=== PATIENT | male | born 1995 | race Caucasian/White ===

== ENCOUNTER 2019-04-26 21:25 | Emergency (ER) | payer SELFPAY ==
[2019-04-26 21:30] VITALS: BP 142/72; PULSE 87; RESP 18; TEMP 36.9; O2SAT 97; BMI 36.0
[2019-04-26 22:01] LABS: Add Urine Microscopic? NO
[2019-04-26 22:14] LABS: Urine Appearance Clear (CLEAR); Urine Color Yellow (Yellow)
[2019-04-26 22:15] LABS: Specific Gravity, Urine 1.015 (1.005-1.030); pH Urine 5 (5-7)
[2019-04-26 22:17] LABS: Bilirubin Urine Neg (NEGATIVE); Blood Urine Neg (Negative); Glucose Urine UA Norm (Normal); Ketones Urine Negative (Negative); Nitrate Urine Negative (Negative); Protein Urine Neg (Negative)
[2019-04-26 22:18] LABS: Leukocyte Esterase Urine Negative (Negative); Urobilinogen Urine Norm (Negative)
--- NOTE | 2019-04-26 23:51 | ED_ITS ---
HPI - Back Pain/Injury General: Chief Complaint: Back Pain/Injury Stated Complaint: low back pain Time Seen by Provider: 04/26/19 23:51 Source: patient Mode of arrival: ambulatory Limitations: no limitations History of Present Illness: HPI Narrative: pt with acute on chronic lower back pain; no known injury/trauma; no radiation; denies numbness, tingling, weakness to LEs; denies saddle anesthesia or bowel/bladder dysfunction MD elicited complaint: back pain Pertinent past history: prior back pain Onset (ago): hour(s) Timing: constant Similar Symptoms Previously: Yes Location: lumbar spine Radiation: none Exacerbating factors: movement Relieving factors: none Associated symptoms: Reports no associated symptoms; Deny abdominal pain, chills, difficulty walking, dysuria, fever(s), nausea, syncope, urinary urgency or vomiting Work related injury: No Review of Systems Const: Denies: fever or chills Card: Denies: chest pain, palpitations, irregular heart rhythm, lightheadedness, syncope or shortness of breath on exertion Resp: Denies: shortness of breath, productive cough or pain on inspiration GI: Denies: abdominal pain, nausea, vomiting, heartburn/indigestion or diarrhea : Denies: flank pain, difficulty urinating, painful urination, urinary frequency, urinary urgency or urinary hesitancy Musc: Reports: back pain; Denies: neck pain or joint pain Skin/Breast: Denies: rash Neuro: Denies: headache, numbness in extremities, weakness in extremities, difficulty walking, frequent falls or dizziness PFSH ED PFSH: Statuses (acute, chronic, etc) shown below reflect problem list status as previously entered and may not be historically accurate Social History Smoking and tobacco status: current every day smoker Physical Exam Const: COMMON NORMALS: no apparent distress, oriented x3 and alert GENERAL APPEARANCE: cooperative HENMT: COMMON NORMALS: normocephalic and head/scalp atraumatic HEAD & SCALP: normocephalic and atraumatic Neck/C-Spine: COMMON NORMALS: full ROM, no lymphadenopathy and supple Resp: COMMON NORMALS: normal respiratory effort, no retractions, no use of accessory muscles and clear to auscultation bilaterally AUSCULTATION: clear to auscultation bilaterally Cardio: COMMON NORMALS: regular rate and regular rhythm RATE: regular rate RHYTHM: regular rhythm : COMMON NORMALS: Yes no CVA tenderness BLADDER/KIDNEY EXAM: Yes no CVA tenderness Back/Pelvis: COMMON NORMALS: no CVA tenderness THORACIC SPINE/UPPER BACK: Yes normal to inspection and Yes thoracic ROM normal LUMBAR SPINE/LOWER BACK: Yes lumbar spinal tenderness, Yes paraspinal muscle tenderness and Yes paraspinal muscle spasm (R mid lumbar) Extremity: COMMON NORMALS: normal to inspection GENERAL: Yes normal exam except as noted Neuro: COMMON NORMALS: oriented x3 SENSORIUM/ORIENTATION: Yes alert Course Vital Signs: Vital signs: Vital Signs Temperature 97.4 F L 04/27/19 01:47 Pulse Rate 81 04/27/19 01:47 Respiratory Rate 14 04/27/19 01:47 Blood Pressure 141/76 04/27/19 01:47 Pulse Oximetry 97 04/27/19 01:47 MDM - Back Pain/Injury Lab Data: Labs: Lab Results 04/26/19 Range/Units 21:35 Urine Color Yellow (Yellow) Urine Appearance Clear (CLEAR) Urine pH 5 (5-7) Ur Specific Gravit y 1.015 (1.005-1.030) Urine Protein Neg (Negative) Urine Glucose (UA) Norm (Normal) Urine Ketones Negative (Negative) Urine Occult Blood Neg (Negative) Urine Nitrate Negative (Negative) Urine Bilirubin Neg (NEGATIVE) Urine Urobilinogen Norm (Negative) mg/dL Ur Leukocyte Rivka ase Negative (Negative) Discharge Plan Discharge Patient Disposition: Home, Self-Care Clinical Impression: Strain of lumbar region Qualifiers: Encounter type: initial encounter Qualified Code(s): S39.012A - Strain of muscle, fascia and tendon of lower back, initial encounter Condition: Stable Prescriptions: New prednisone 10 mg tablet 60 mg PO DAILY 5 Days Qty: 30 RF: 0 cyclobenzaprine 10 mg tablet 10 mg PO TID Qty: 14 RF: 0 Tylenol-Codeine #3 300-30 mg tablet 1 tab PO Q6H PRN (Reason: pain) Qty: 10 RF: 0 Discharge Orders: Discharge Order (Routine); Ordered 04/27/19 Ordered By: Cristina Jimenez Referrals: Carolyn Vela MD [Family Provider] - Discharge Activity: Increase activity as tolerated Patient Instructions: Low Back Strain (ED), Back Pain (ED) Discharge Date/Time: 04/27/19 01:40 Coding Level of Care Code ED Brim Stretching Machine Operator for Chg Fwd
[2019-04-27 00:50] VITALS: RESP 16
[2019-04-27] MEDS: dexamethasone 10 mg/mL INJ 8 MG IM (00:50)
[2019-04-27] MEDS: morphine 4 mg/mL SDV 1 mL IM (00:50)
[2019-04-27 01:47] VITALS: BP 141/76; PULSE 81; RESP 14; TEMP 36.3; O2SAT 97
== END 2019-04-27 01:40 | disposition home or self-care (01) ==
LOC: ER 04-27 00:44
PROVIDERS: Emergency Medicine; Emergency Provider Physician Assistant; Family Provider Pediatrics
DX: S39.012A Strain of muscle, fascia and tendon of lower back, initial encounter (principal); X58.XXXA Exposure to other specified factors, initial encounter; F17.210 Nicotine dependence, cigarettes, uncomplicated
CPT/HCPCS: 81003; 96372; 99281; J1100; J2270

== ENCOUNTER → 2020-01-15 11:10 | Outpatient (BNVA) | payer SELFPAY | PROVIDERS: Family Provider Pediatrics; Visit Provider Nurse Practitioner Family | DX: Z20.828 Contact with and (suspected) exposure to other viral communicable diseases (principal) | CPT/HCPCS: 87635 ==

== ENCOUNTER 2020-05-18 10:38 | Outpatient (CLI) | payer BC, SELFPAY ==
--- NOTE | 2020-05-18 10:51 | XR_ITS ---
WS: [id number] Exam: XR thoracic spine 3V* [id number] Date/Time of Exam: 05/18/2020 10:57 AM Reason For Exam: MYALGIA/MYOSITIS/LOW BACK PAIN Comparison 09/30/2009. No acute fracture or dislocation. Slight levoscoliosis. Paraspinal soft tissue structures are unremar kable. XR/XR thoracic spine 3V* [id number] IMPRESSION: 1. No fracture or malalignment. Slight scoliosis.
--- NOTE | 2020-05-18 10:51 | XR_ITS ---
WS: [id number] Exam: XR lumbar spine 2-3V* [id number] Date/Time of Exam: 05/18/2020 10:57 AM Reason For Exam: MYALGIA/MYOSITIS/LOW BACK PAIN Findings: In the AP projection, the lumbar spine is straight. The sacroiliac joints are open. The facet struc tures are bilaterally symmetrical. In the lateral projection, the lumbar curve is well maintained. The intervertebral disc spaces are intact. No fractures or anomalies of the lumbar spine are noted. XR/XR lumbar spine 2-3V* [id number] IMPRESSION: Negative lumbar spine.
== END 2020-05-18 10:39 | disposition home or self-care (01) ==
PROVIDERS: Visit Provider Nurse Practitioner Family
DX: M60.9 Myositis, unspecified (principal); M54.5 Low back pain
CPT/HCPCS: 72072; 72100

== ENCOUNTER → 2020-11-27 12:16 | Outpatient (BNVA) | payer BC, SELFPAY | PROVIDERS: Visit Provider Nurse Practitioner Family | DX: Z20.828 Contact with and (suspected) exposure to other viral communicable diseases (principal); Z20.822 Contact with and (suspected) exposure to COVID-19 | CPT/HCPCS: 87635 ==

== ENCOUNTER → 2020-11-29 18:22 | Outpatient (BNVA) | payer BC, SELFPAY | PROVIDERS: Visit Provider Registered Nurse Neonatal Intensive Care | DX: Z20.822 Contact with and (suspected) exposure to COVID-19 (principal); Z11.59 Encounter for screening for other viral diseases | CPT/HCPCS: 87635 ==

== ENCOUNTER → 2021-02-12 13:10 | Outpatient (BNVA) | payer BC, SELFPAY | PROVIDERS: Visit Provider Emergency Medicine | DX: Z20.828 Contact with and (suspected) exposure to other viral communicable diseases (principal); Z20.822 Contact with and (suspected) exposure to COVID-19 | CPT/HCPCS: 87635 ==

== ENCOUNTER → 2021-03-08 09:25 | Outpatient (BNVA) | payer BC, SELFPAY | PROVIDERS: Visit Provider Internal Medicine | DX: M54.50 Low back pain, unspecified (principal); M25.50 Pain in unspecified joint; G47.30 Sleep apnea, unspecified; Z11.59 Encounter for screening for other viral diseases; Z87.891 Personal history of nicotine dependence | CPT/HCPCS: 99204 ==

== ENCOUNTER 2021-03-08 11:23 | Outpatient (CLI) | payer BC, SELFPAY ==
--- NOTE | 2021-03-08 11:30 | XR_ITS ---
WS: [id number] Exam: XR sacroiliac jts m 3V [id number] Date/Time of Exam: 03/08/2021 12:14 PM Reason For Exam: M54.50 - Low back pain, unspecified No sign of fracture or dislocation. The right and left sacroiliac joints are open. No sign of bone de struction. XR/XR sacroiliac jts m 3V [id number] IMPRESSION: 1. Normal bilateral SI joints.
--- NOTE | 2021-03-08 11:30 | XR_ITS ---
WS: [id number] Exam: XR hand RT 2V [id number] Date/Time of Exam: 03/08/2021 12:14 PM Reason For Exam: M54.50 - Low back pain, unspecified Findings: No fractures, soft tissue swelling, or unusual calcifications are noted. The hand shows normal bony alignment. There is no irregularity of the bony architecture. XR/XR hand RT 2V [id number] IMPRESSION: Normal right hand.
--- NOTE | 2021-03-08 11:30 | XR_ITS ---
WS: [id number] Exam: XR hand LT 2V [id number] Date/Time of Exam: 03/08/2021 12:14 PM Reason For Exam: M54.50 - Low back pain, unspecified Findings: No fractures, soft tissue swelling, or unusual calcifications are noted. The hand shows normal bony alignment. There is no irregularity of the bony architecture. XR/XR hand LT 2V [id number] IMPRESSION: Normal left hand.
[2021-03-08 12:49] LABS: Basophils % 0.3 %; Eosinophils # 0.2 10^3/uL (0.0-0.8); Eosinophils % 2.6 %; Hematocrit 41.9 % (42.0-52.0); Lymphocytes # 1.7 10^3/uL (0.8-4.8); Lymphocytes % 26.7 %; Mean Corpuscular HGB Conc 33.4 g/dL (30.0-36.0); Mean Corpuscular Hemoglobin 27.6 pg (28.0-34.0); Mean Corpuscular Volume 82.6 fl (80-94); Mean Platelet Volume 9.1 fL (7.4-10.4); Monocytes # 0.4 10^3/uL (0.2-0.9); Monocytes % 6.5 %; Neutrophils # 4.08 10^3/uL (1.8-7.7); Neutrophils % 63.6 %; Nucleated Red Blood Cells % 0 %; Platelet Count 268 10^3/cmm (130-400); Red Blood Count 5.07 10^6/uL (4.1-5.3); White Blood Count 6.4 10^3/uL (4.0-10.0)
[2021-03-08 13:32] LABS: Alanine Aminotransferase 20 U/L (0-41); Albumin Level 4.3 g/dL (3.5-5.2); Alkaline Phosphatase 72 IU/L (40-130); Anion Gap 18.1 (5-19); Aspartate Amino Transferase 13 U/L (0-40); Blood Urea Nitrogen 12 mg/dL (6-20); C Reactive Protein 11.3 mg/L (0.0-4.9); Calcium 8.9 mg/dL (8.5-10.5); Carbon Dioxide 22 mmol/L (22-29); Chloride 102 mmol/L (98-107); Creatine Phosphokinase 81 U/L (39-308); Globulin 2.9 g/dL (1.3-4.6); Glomerular Filtration Rate 136.3 mL/min (90-130); Glucose 79 mg/dL (65-115); Osmolality Calculated 285 mOsm/kg (285-295); Potassium 4.1 mmol/L (3.5-5.1); Sodium 138 mmol/L (136-145); Thyroid Stimulating Hormone 2.16 uIU/mL (0.27-4.20); Total Bilirubin 0.5 mg/dL (0.15-1.2); Total Protein 7.2 g/dL (6.6-8.7); Uric Acid 6.2 mg/dL (3.4-7.0)
[2021-03-08 13:39] LABS: Hepatitis B Core AB, Total Non-Reactive (Nonreactive); Hepatitis B Surface Antigen Non-Reactive (Nonreactive); Hepatitis C Virus Antibody Reactive (Nonreactive)
[2021-03-08 13:58] LABS: Ferritin 119 ng/mL (30-400); Iron 44 ug/dL (59-158)
[2021-03-09 13:32] LABS: Cyclic Citrullinated Peptide <16 UNITS
[2021-03-09 15:13] LABS: COMPLEMENT COMPONENT C3C 187 mg/dL (82-185); COMPLEMENT COMPONENT C4C 24 mg/dL (15-53)
[2021-03-09 20:12] LABS: Erythrocyte Sedimentation Rate 9 mm/hr (0-10)
[2021-03-10 08:48] LABS: HLA-B27 POSITIVE (NEGATIVE)
[2021-03-10 14:33] LABS: COMPLEMENT, TOTAL (CH50) >60 U/mL (31-60)
[2021-03-10 15:26] LABS: CENTROMERE B ANTIBODY <1.0 NEG AI (<1.0 NEG); JO-1 ANTIBODY <1.0 NEG AI (<1.0 NEG); RNP ANTIBODY <1.0 NEG AI (<1.0 NEG); SCL-70 ANTIBODY <1.0 NEG AI (<1.0 NEG); SJOGREN'S ANTIBODY (SS-A) <1.0 NEG AI (<1.0 NEG); SM ANTIBODY <1.0 NEG AI (<1.0 NEG); SS-B <1.0 NEG AI (<1.0 NEG)
[2021-03-10 15:56] LABS: THYROID PEROXIDASE ANTIBODIES <1 IU/mL (<9)
[2021-03-10 17:13] LABS: ANA SCREEN, IFA NEGATIVE (NEGATIVE)
[2021-03-13 14:53] LABS: DNA AB (DS) CRITHIDIA,IFA NEGATIVE (NEGATIVE)
== END 2021-03-08 11:24 | disposition home or self-care (01) ==
PROVIDERS: Visit Provider Internal Medicine
DX: G47.30 Sleep apnea, unspecified (principal); M25.50 Pain in unspecified joint; M54.50 Low back pain, unspecified; M45.0 Ankylosing spondylitis of multiple sites in spine; Z11.59 Encounter for screening for other viral diseases
CPT/HCPCS: 72202; 73120; 80053; 82550; 82728; 83540; 84443; 84550; 85025; 85651; 86140; 86160; 86162; 86200; 86235; 86255; 86376; 86431; 86704; 86803; 86812; 87340

== ENCOUNTER → 2021-03-23 13:09 | Outpatient (BNVA) | payer BC, SELFPAY | PROVIDERS: Visit Provider Internal Medicine | DX: M54.50 Low back pain, unspecified (principal); M54.2 Cervicalgia; G89.29 Other chronic pain; M25.50 Pain in unspecified joint; G47.30 Sleep apnea, unspecified; R76.8 Other specified abnormal immunological findings in serum; Z79.899 Other long term (current) drug therapy; E61.1 Iron deficiency; Z15.89 Genetic susceptibility to other disease | CPT/HCPCS: 36415; 82306; 82607; 82784; 83516; 87522; 99214 ==

== ENCOUNTER 2021-06-08 10:04 | Outpatient (CLI) | payer BC, SELFPAY ==
[2021-06-08 10:29] LABS: Basophils % 0.3 %; Eosinophils # 0.2 10^3/uL (0.0-0.8); Eosinophils % 2.5 %; Hematocrit 40.4 % (42.0-52.0); Hemoglobin 13.4 g/dL (11.7-16.6); Lymphocytes # 1.7 10^3/uL (0.8-4.8); Lymphocytes % 22.5 %; Mean Corpuscular HGB Conc 33.2 g/dL (30.0-36.0); Mean Corpuscular Hemoglobin 27.7 pg (28.0-34.0); Mean Corpuscular Volume 83.5 fl (80-94); Mean Platelet Volume 9.2 fL (7.4-10.4); Monocytes # 0.6 10^3/uL (0.2-0.9); Monocytes % 7.4 %; Neutrophils # 4.99 10^3/uL (1.8-7.7); Neutrophils % 66.9 %; Nucleated Red Blood Cells % 0 %; Platelet Count 255 10^3/cmm (130-400); Red Blood Count 4.84 10^6/uL (4.1-5.3); Red Cell Distribution Width 13.3 % (12.1-15.1); White Blood Count 7.5 10^3/uL (4.0-10.0)
[2021-06-08 10:56] LABS: Erythrocyte Sedimentation Rate 6 mm/hr (0-10)
[2021-06-08 10:59] LABS: Alanine Aminotransferase 21 U/L (0-41); Albumin Level 4.3 g/dL (3.5-5.2); Alkaline Phosphatase 77 IU/L (40-130); Anion Gap 12.3 (5-19); Aspartate Amino Transferase 14 U/L (0-40); Blood Urea Nitrogen 14 mg/dL (6-20); C Reactive Protein 12.6 mg/L (0.0-4.9); Calcium 9.5 mg/dL (8.5-10.5); Carbon Dioxide 25 mmol/L (22-29); Chloride 104 mmol/L (98-107); Globulin 2.8 g/dL (1.3-4.6); Glomerular Filtration Rate 162.9 mL/min (90-130); Glucose 88 mg/dL (65-115); Osmolality Calculated 284 mOsm/kg (285-295); Potassium 4.3 mmol/L (3.5-5.1); Sodium 137 mmol/L (136-145); Total Bilirubin 0.5 mg/dL (0.15-1.2); Total Protein 7.1 g/dL (6.6-8.7)
== END 2021-06-08 10:05 | disposition home or self-care (01) ==
LOC: LAB 10:08
PROVIDERS: Visit Provider Internal Medicine
DX: R76.8 Other specified abnormal immunological findings in serum (principal); Z15.89 Genetic susceptibility to other disease; Z79.899 Other long term (current) drug therapy
CPT/HCPCS: 36415; 80053; 85025; 85651; 86140

== ENCOUNTER 2021-07-22 12:50 | Outpatient (CLI) | payer BC, SELFPAY ==
[2021-07-22 13:47] LABS: Basophils % 0.5 %; Eosinophils # 0.3 10^3/uL (0.0-0.8); Eosinophils % 4.4 %; Hematocrit 41.4 % (42.0-52.0); Hemoglobin 13.5 g/dL (11.7-16.6); Lymphocytes # 1.9 10^3/uL (0.8-4.8); Lymphocytes % 32.6 %; Mean Corpuscular HGB Conc 32.6 g/dL (30.0-36.0); Mean Corpuscular Hemoglobin 27.3 pg (28.0-34.0); Mean Corpuscular Volume 83.8 fl (80-94); Mean Platelet Volume 9.6 fL (7.4-10.4); Monocytes # 0.4 10^3/uL (0.2-0.9); Monocytes % 7.6 %; Neutrophils % 54.7 %; Nucleated Red Blood Cells % 0 %; Platelet Count 295 10^3/cmm (130-400); Red Blood Count 4.94 10^6/uL (4.1-5.3); Red Cell Distribution Width 13.2 % (12.1-15.1); White Blood Count 5.7 10^3/uL (4.0-10.0)
[2021-07-22 13:53] LABS: Alanine Aminotransferase 19 U/L (0-41); Albumin Level 4.5 g/dL (3.5-5.2); Alkaline Phosphatase 69 IU/L (40-130); Anion Gap 11.8 (5-19); Aspartate Amino Transferase 17 U/L (0-40); Blood Urea Nitrogen 12 mg/dL (6-20); Calcium 9.8 mg/dL (8.5-10.5); Carbon Dioxide 27 mmol/L (22-29); Chloride 102 mmol/L (98-107); Globulin 2.1 g/dL (1.3-4.6); Glomerular Filtration Rate 90.3 mL/min (90-130); Glucose 116 mg/dL (65-115); Osmolality Calculated 285 mOsm/kg (285-295); Potassium 3.8 mmol/L (3.5-5.1); Sodium 137 mmol/L (136-145); Total Bilirubin 0.5 mg/dL (0.15-1.2); Total Protein 6.6 g/dL (6.6-8.7)
== END 2021-07-22 12:51 | disposition home or self-care (01) ==
LOC: LAB 12:52
PROVIDERS: Visit Provider Internal Medicine
DX: M25.50 Pain in unspecified joint (principal); Z15.89 Genetic susceptibility to other disease; Z79.899 Other long term (current) drug therapy
CPT/HCPCS: 36415; 80053; 85025

== ENCOUNTER 2021-08-25 15:00 | Outpatient (CLI) | payer BC, SELFPAY ==
[2021-08-25 16:01] LABS: Basophils % 0.3 %; Eosinophils # 0.1 10^3/uL (0.0-0.8); Eosinophils % 1.7 %; Hematocrit 39.8 % (42.0-52.0); Lymphocytes # 1.9 10^3/uL (0.8-4.8); Lymphocytes % 27.1 %; Mean Corpuscular HGB Conc 32.7 g/dL (30.0-36.0); Mean Corpuscular Hemoglobin 27.3 pg (28.0-34.0); Mean Corpuscular Volume 83.6 fl (80-94); Mean Platelet Volume 9.5 fL (7.4-10.4); Monocytes # 0.5 10^3/uL (0.2-0.9); Monocytes % 6.9 %; Neutrophils # 4.36 10^3/uL (1.8-7.7); Neutrophils % 63.6 %; Nucleated Red Blood Cells % 0 %; Platelet Count 277 10^3/cmm (130-400); Red Blood Count 4.76 10^6/uL (4.1-5.3); Red Cell Distribution Width 13.3 % (12.1-15.1); White Blood Count 6.9 10^3/uL (4.0-10.0)
[2021-08-25 16:19] LABS: Erythrocyte Sedimentation Rate 8 mm/hr (0-10)
[2021-08-25 16:33] LABS: Alanine Aminotransferase 15 U/L (0-41); Albumin Level 4.4 g/dL (3.5-5.2); Alkaline Phosphatase 71 IU/L (40-130); Anion Gap 14.9 (5-19); Aspartate Amino Transferase 21 U/L (0-40); Blood Urea Nitrogen 12 mg/dL (6-20); C Reactive Protein 15.1 mg/L (0.0-4.9); Calcium 9.8 mg/dL (8.5-10.5); Carbon Dioxide 26 mmol/L (22-29); Chloride 102 mmol/L (98-107); Glomerular Filtration Rate 116.9 mL/min (90-130); Glucose 83 mg/dL (65-115); Osmolality Calculated 287 mOsm/kg (285-295); Potassium 3.9 mmol/L (3.5-5.1); Sodium 139 mmol/L (136-145); Total Bilirubin 0.7 mg/dL (0.15-1.2); Total Protein 7.4 g/dL (6.6-8.7)
== END 2021-08-25 15:01 | disposition home or self-care (01) ==
PROVIDERS: Visit Provider Internal Medicine
DX: M25.50 Pain in unspecified joint (principal); Z15.89 Genetic susceptibility to other disease; Z79.899 Other long term (current) drug therapy
CPT/HCPCS: 36415; 80053; 85025; 85651; 86140

== ENCOUNTER → 2021-08-31 09:03 | Outpatient (BNVA) | payer BC, SELFPAY | PROVIDERS: Visit Provider Internal Medicine | DX: M25.569 Pain in unspecified knee (principal) | CPT/HCPCS: 73562 ==

== ENCOUNTER 2021-12-08 19:51 | Emergency (ER) | payer BC, SELFPAY ==
[2021-12-08 19:53] VITALS: BP 122/69; PULSE 104; RESP 20; TEMP 36.7; O2SAT 99; BMI 36.1
--- NOTE | 2021-12-08 20:01 | XRR_ITS ---
PROCEDURE INFORMATION: Exam: XR Chest Exam date and time: 12/08/2021 8:03 PM Age: 26 years old Clinical indication: Fever TECHNIQUE: Imaging protocol: Radiologic exam of the chest. Views: 1 view. COMPARISON: CR XR thoracic spine 3V* [id number] 05/18/2020 11:03 AM FINDINGS: Lungs: Unremarkable. No consolidation. Pleural spaces: Unremarkable. No pleural effusion. No pneumothorax. Heart/Mediastinum: Unremarkable. No cardiomegaly. Bones/joints: Unremarkable. XR/XR chest 1V portable [id number] IMPRESSION: No acute findings.
--- NOTE | 2021-12-08 20:15 | ED_ITS ---
HPI - General Adult General: Chief complaint: Fever Stated complaint: Chest Pain/Fever/SOB Time Seen by Provider: 12/08/21 20:01 Source: patient Mode of arrival: ambulatory Limitations: no limitations History of Present Illness: Patient is a 26-year-old male who presents to ED today with complaint of a headache over the past few days, low-grade fever (99.0) starting yesterday, midthoracic back pain and burning chest pain beginning today. Patient states he does have a history of midthoracic back pain and states his pain today feels similar. He states the burning in his chest is not accompanied by a cough. He feels mildly short of breath. He does state his child is sick with fever and cough and not feeling well. Patient does not have any abdominal pain, nausea, vomiting or diarrhea. No rash. He has no neck pain or stiffness. Patient denies any leg pain, calf pain, redness, swelling. No risk factors for DVT/PE. No URI symptoms. Location: head, chest and back Severity: mild Associated symptoms: Reports chest pain, dyspnea and headache(s); Deny confusion, malaise, nausea, rash, palpitations, syncope or vomiting Review of Systems Const: Reports: fever(s) (subjective low grade); Denies: chills, body aches, fatigue or malaise Eyes: Denies: change in vision or blurry vision ENMT: Denies: throat pain, odynophagia, nasal discharge or nasal congestion Card: Reports: chest pain; Denies: palpitations, irregular heart rhythm, edema, swelling of feet/ankles, lightheadedness, syncope, pre-syncope, dyspnea on exertion, orthopnea, leg pain with exertion or acrocyanosis Resp: Reports: dyspnea and pain on inspiration; Denies: productive cough, non-productive cough, wheezing, hemoptysis or chest congestion GI: Denies: abdominal pain, nausea, vomiting or diarrhea : Denies: flank pain, dysuria or hematuria Musc: Reports: back pain; Denies: neck pain, extremity pain, extremity swelling, joint pain, joint swelling, joint redness or joint warmth Skin/Breast: Denies: rash Neuro: Reports: headache(s); Denies: numbness in extremities, weakness in extremities, sensory changes, dizziness or confusion PFS ED PFSH: Family History Family/Other Diabetes Hypertension Rheumatoid arthritis Heart attack Unknown Diabetes Rheumatoid arthritis Grandfather Hypertension Heart attack Grandmother Hypertension Denies family history of Lupus Hyperlipidemia Cancer Stroke Social History Smoking and tobacco status: former smoker Alcohol intake: never History of recent travel: No Physical Exam Const: COMMON NORMALS: no acute distress, patient oriented x3, no limitations, alert and well nourished GENERAL APPEARANCE: cooperative NUTRITIONAL APPEARANCE: overweight ORIENTATION/CONSCIOUSNESS: Yes awake, Yes oriented to place and Yes oriented to time HENMT: COMMON NORMALS: normocephalic and atraumatic HEAD & SCALP: normal to inspection, normocephalic and atraumatic Neck/C-Spine: COMMON NORMALS: full ROM, no lymphadenopathy and no meningeal signs Chest: COMMONS NORMALS: normal inspection of the chest OTHER: TTP anterior chest; palpation reproduces patient's pain Resp: COMMON NORMALS: normal respiratory effort and clear to auscultation bilaterally AUSCULTATION: clear to auscultation bilaterally Cardio: COMMON NORMALS: regular rate and regular rhythm RATE: regular rate RHYTHM: regular rhythm GI: COMMON NORMALS: Normal to inspection, nondistended, normoactive bowel sounds present, Soft to palpation and non-tender PALPATION: Yes Soft to palpation : COMMON NORMALS: Yes no CVA tenderness BLADDER/KIDNEY EXAM: Yes no CVA tenderness Back/Pelvis: COMMON NORMALS: no CVA tenderness, thoracic and lumbar spine normal to inspection and thoraco-lumbar ROM normal THORACIC SPINE/UPPER BACK: Yes normal to inspection, Yes thoracic ROM normal, Yes thoracic spinal tenderness (extremity mild) and No paraspinal muscle spasm LUMBAR SPINE/LOWER BACK: Yes normal to inspection, No lumbar spinal tenderness and No paraspinal muscle tenderness PELVIS: Yes buttocks normal SACROILIAC JOINTS: Yes SI joints normal Extremity: COMMON NORMALS: normal to inspection, capillary refill normal, no joint enlargement, no clubbing, cyanosis or edema, no calf tenderness and no pedal edema GENERAL: Yes normal exam except as noted Neuro: FLORA COMA SCALE: document GCS findings Flora coma scale eye opening: Spontaneous Flora coma scale verbal response: Orientated Flora coma scale motor response: Obey commands Flora coma scale total score: 15 COMMON NORMALS: patient oriented x3, moves all extremities, no focal motor deficits, no sensory deficits noted and gait normal SENSORIUM/ORIENTATION: Yes alert, Yes oriented to place and Yes oriented to time MENINGEAL SIGNS: Yes no meningeal signs Skin: COMMON NORMALS: no rashes or lesions noted GENERAL SKIN EXAM: no rashes or lesions noted Course Vital Signs: Vital signs: Vital Signs Temperature 99.4 F 12/08/21 20:26 Pulse Rate 98 12/08/21 20:26 Respiratory Rate 17 12/08/21 21:22 Blood Pressure 126/72 12/08/21 20:26 Pulse Oximetry 99 12/08/21 21:22 Oxygen Delivery Me thod 12/08/21 20:26 MDM - General Adult Medical Decision Making Patient's chest pain is reproducible with palpation of his anterior chest wall. CXR is normal. His vital signs are normal part from a low-grade fever of 99.4. He does have a sick contact with his child being ill at home. Coronavirus PCR obtained and pending. Patient has had similar thoracic back pains before. I did have any suspicion for emergent etiology such as dissection/aneurysm. I do not see any reason for emergent labs today as it is unlikely to yield any additional information that would foreign exchange trader. At this time I would recommend keeping a close eye on symptoms over the next 24 to 48 hours and he can follow-up with primary care. Return to ED precautions given. Lab Data Radiology Impressions Chest X-Ray 12/08/21 20:01 IMPRESSION: No acute findings. Discharge Plan Discharge Patient Disposition: Home Clinical Impression: Thoracic back pain, Burning in the chest Condition: Stable Prescriptions: No Action diclofenac sodium [Voltaren Arthritis Pain] 1 % gel 4 g topical QID PRN Rx Instructions: apply to single knee, ankle, foot; for foot includes sole/toes/top of foot omeprazole 20 mg capsule,delayed release(DR/EC) 20 mg PO DAILY sulfasalazine 500 mg tablet 0.5 g PO Q12H Qty: 60 3RF Rx Instructions: give with food (meal/snack) celecoxib [Celebrex] 100 mg capsule 100 mg PO BID Qty: 60 2RF gabapentin 100 mg capsule 100 mg PO DAILY Qty: 30 3RF Discharge Orders: Discharge ED (Routine); Ordered 12/08/21 Ordered By: Cristina Jimenez Activity Restrictions/Additional Instructions: As we discussed watch symptoms closely over the next 24 to 48 hours for any new or progressively worsening symptoms. Your chest x-ray today looks normal. You will be contacted if any of the results of your Coronavirus PCR positive. You need to return to the emergency department for worsening chest pain, severe shortness of breath or difficulty breathing, severe back or abdominal pain, or any other concerns you may have. I hope you begin to feel better soon. Coding Level of Care Code ED Induction Machine Setter for Chucky Fwd Exam Comprehensive
[2021-12-08 20:26] VITALS: BP 126/72; PULSE 98; RESP 18; TEMP 37.4; O2SAT 99
[2021-12-08 21:22] VITALS: RESP 17; O2SAT 99
[2021-12-08 22:34] LABS: Adenovirus Not Detected (NOT DETECT); Chlamydia Pneumoniae Not Detected (NOT DETECT); Coronavirus 229E,HKU1,NL63,OC4 Not Detected (NOT DETECT); Human Metapneumovirus Not Detected (NOT DETECT); Human Rhinovirus/Enterovirus Not Detected (NOT DETECT); Influenza A Not Detected (NOT DETECT); Influenza A H1 Not Detected (NOT DETECT); Influenza A H1-2009 Not Detected (NOT DETECT); Influenza A H3 Not Detected (NOT DETECT); Influenza B Not Detected (NOT DETECT); Mycoplasma Pneumoniae Not Detected (NOT DETECT); Parainfluenza Virus Type 1 Not Detected (NOT DETECT); Parainfluenza Virus Type 2 Not Detected (NOT DETECT); Parainfluenza Virus Type 3 Not Detected (NOT DETECT); Parainfluenza Virus Type 4 Not Detected (NOT DETECT); Respiratory Syncytial Virus A Not Detected (NOT DETECT); Respiratory Syncytial Virus B Not Detected (NOT DETECT); SARS-COV-2 Not Detected (NOT DETECT)
== END 2021-12-08 21:23 | disposition home or self-care (01) ==
PROVIDERS: Emergency Provider Physician Assistant
DX: M54.6 Pain in thoracic spine (principal); R07.89 Other chest pain; Z87.891 Personal history of nicotine dependence; Z20.822 Contact with and (suspected) exposure to COVID-19
CPT/HCPCS: 71045; 87635; 99283

== ENCOUNTER 2021-12-31 19:58 | Emergency (ER) | payer BC, SELFPAY ==
[2021-12-31 20:14] VITALS: BP 127/83; PULSE 88; RESP 20; TEMP 36.9; O2SAT 97; BMI 36.1
--- NOTE | 2021-12-31 22:23 | USR_ITS ---
PROCEDURE INFORMATION: Exam: US Scrotum Exam date and time: 12/31/2021 10:50 PM Age: 26 years old Clinical indication: Scrotum pain; Additional info: Left testicle pain with mass TECHNIQUE: Imaging protocol: Real-time ultrasound of the scrotum and contents with color Doppler and image documentation. COMPARISON: CR XR sacroiliac jts m 3V [id number] 03/08/2021 12:15 PM FINDINGS: Right testicle: Right testicle measures 4.8 x 2.6 x 2.7 cm. No mass. No torsion. Normal vascular flow. Left testicle: Left testicle measures 4.6 x 2.1 x 3.4 cm. Heterogeneous echogenicity of the left testicle with asymmetric hypervascularity compared to the contralateral side. No mass. No torsion. Epididymides: Asymmetric hypervascularity of the left epididymis. Scrotum: Normal. US/US scrotum [id number] IMPRESSION: Left-sided epididymitis/orchitis.
--- NOTE | 2021-12-31 22:24 | W.ED.GENADLT ---
HPI - General Adult General: Chief complaint: General Medical Stated complaint: josé pain Time Seen by Provider: 12/31/21 22:04 History of Present Illness: Patient is a 26-year-old male comes to the ED with left testicular pain. Patient says symptoms started approximately 3 days ago. Pain is in the left testicle and he rates the pain a 5 out of 10. He states that when he is at rest or sitting he does not really feel any pain. He only feels pain in his left testicle when there is some pressure applied to test days. Denies any past history of testicle pain. Patient admits to being sexually active. Denies any fever, nausea/vomiting, abdominal pain, penile discharge, penile lesions, hematuria, dysuria or bowel issues. Associated symptoms: Deny chest pain, dyspnea, headache(s), nausea, rash, palpitations or vomiting Review of Systems Const: Denies: fever(s), chills or fatigue Eyes: Denies: change in vision or eye discomfort ENMT: Denies: throat pain, odynophagia, nasal discharge or nasal congestion Card: Denies: chest pain, palpitations, edema, swelling of feet/ankles, dyspnea on exertion or orthopnea Resp: Denies: dyspnea, productive cough or non-productive cough GI: Denies: abdominal pain, nausea, vomiting, diarrhea, constipation or hematochezia : Reports: testicular pain (Left testicle) and testicular mass (Left testicle); Denies: flank pain, difficulty urinating, dysuria or hematuria Musc: Denies: neck pain, back pain or extremity swelling Skin/Breast: Denies: rash or new lesions Neuro: Denies: headache(s), numbness in extremities or weakness in extremities PFS ED PFSH: Medical History (Updated 01/01/22 @ 00:02 by ROLANDO Blue) Hepatitis C antibody positive in blood HLA B27 (HLA B27 positive) No pertinent family history Family History Family/Other Diabetes Hypertension Rheumatoid arthritis Heart attack Unknown Diabetes Rheumatoid arthritis Grandfather Hypertension Heart attack Grandmother Hypertension Denies family history of Lupus Hyperlipidemia Cancer Stroke Social History Smoking and tobacco status: former smoker Alcohol intake: never History of recent travel: No Physical Exam Const: COMMON NORMALS: no acute distress, patient oriented x3, healthy appearing and alert GENERAL APPEARANCE: cooperative and comfortable HENMT: COMMON NORMALS: normocephalic HEAD & SCALP: normocephalic MOUTH: Normal oral and palatal mucosa present THROAT: posterior oropharynx normal and uvula midline Neck/C-Spine: COMMON NORMALS: supple GENERAL: Yes normal visual inspection Resp: COMMON NORMALS: normal respiratory effort, No retractions, No use of accessory muscles and clear to auscultation bilaterally AUSCULTATION: clear to auscultation bilaterally Cardio: COMMON NORMALS: regular rate, regular rhythm, S1 normal heart sound present, S2 normal heart sound present, No gallops present (Cardio), No clicks present (Cardio), No murmurs present (Cardio) and Peripheral pulses 2+ throughout RATE: regular rate RHYTHM: regular rhythm HEART SOUNDS: S1 normal heart sound present and S2 normal heart sound present PERIPHERAL PULSES: Peripheral pulses 2+ throughout GI: COMMON NORMALS: Normal to inspection, nondistended, normoactive bowel sounds present, Soft to palpation, non-tender and no masses PALPATION: Yes Soft to palpation : COMMON NORMALS: Yes no CVA tenderness BLADDER/KIDNEY EXAM: Yes no CVA tenderness SCROTUM: Yes Scrotal tenderness present (Left testicle) and Yes scrotal mass Scrotal mass laterality: left (Small mass on the left testicle) Back/Pelvis: COMMON NORMALS: no CVA tenderness Extremity: COMMON NORMALS: normal to inspection Neuro: COMMON NORMALS: patient oriented x3 SENSORIUM/ORIENTATION: Yes alert GAIT: Yes Normal gait present Skin: GENERAL SKIN EXAM: dry skin Course Vital Signs: Vital signs: Vital Signs Temperature 98.4 F 12/31/21 20:14 Pulse Rate 88 12/31/21 20:14 Respiratory Rate 20 H 12/31/21 20:14 Blood Pressure 127/83 12/31/21 20:14 Pulse Oximetry 97 12/31/21 20:14 [facility] - General Adult Medical Decision Making Patient is a 26-year-old male comes to the ED with left testicle pain. Denies any penile discharge, dysuria, hematuria, genital lesions, abdominal pain, nausea or vomiting or bowel symptoms. Patient did say sexually active. Vitals are stable. Exam of patient shows some tenderness of the left testicle. Patient appears in no acute distress or pain. Ultrasound of scrotum shows left epididymitis and orchitis. Patient was given a dose of IM Rocephin here in the ED and was discharged home on doxycycline. I placed order with case management for patient to be referred to urologist for follow-up on epididymitis and orchitis. Return ED precautions given. Patient understood agree with plan. Lab Data Radiology Impressions Scrotum Ultrasound 12/31/21 22:23 IMPRESSION: Left-sided epididymitis/orchitis. Discharge Plan Discharge Patient Disposition: Home Clinical Impression: Orchitis and epididymitis Condition: Stable Prescriptions: New doxycycline hyclate 100 mg capsule 100 mg PO BID 10 Days Qty: 20 0RF ibuprofen 800 mg tablet 800 mg PO Q8H PRN (Reason: pain) Qty: 20 0RF No Action omeprazole 20 mg capsule,delayed release(DR/EC) 20 mg PO DAILY Discharge Orders: Discharge ED (Routine); Ordered 12/31/21 Ordered By: Reagan Zamudio Referrals: Chiquis Tillman SALES ACTIVITY MANAGER [Primary Care Provider] - Discharge Diet: Regular Discharge Activity: Resume usual activity Patient Instructions: Epididymitis (ED), Orchitis (ED) Activity Restrictions/Additional Instructions: Follow-up with medical provider as directed. Case management will contact you in the next several days set up an appointment with the urologist for follow-up. Take medications as prescribed. Return to the ER or your medical provider if condition worsens. Please read and understand discharge instructions. Thank you for choosing [facility] for your healthcare needs today. Please realize this is an emergency room and that we are providing you with a medical screening exam and this may not be complete and all inclusive of all the testing and or work up that you may need to determine your ailment or severity of your illness. It is very important that you follow up as instructed or that you return to the Emergency Department should you have concerns or if your condition changes or worsens in any way. Coding Level of Care Code ED Circular Knife Cutter Machine for Chucky Greenfield Exam Comprehensive
[2022-01-01] MEDS: doxycycline 100 mg Tablet PO (00:05)
--- NOTE | 2022-01-03 12:53 | DCPLANNER ---
Addendum entered by Rose Porter 02/09/22 13:11: Patients appointment was cancelled Addendum entered by Rose Porter 01/05/22 08:55: Patient has a follow up appointment scheduled for Friday, February 04, 2022 at 10:[address] Escalera at urology. Clinic will call patient with appointment information. Original Note: community relations manager had message to schedule a follow up appointment for patient with urology. community relations manager sent patients information to the front office staff at urology. Patients information will be printed and reviewed. Clinic will call patient with appointment information.
== END 2022-01-01 00:30 | disposition home or self-care (01) ==
PROVIDERS: Emergency Provider Physician Assistant; PCP Nurse Practitioner Family
DX: N45.3 Epididymo-orchitis (principal)
CPT/HCPCS: 76870; 96372; 99284; J0696

== ENCOUNTER → 2024-03-28 09:31 | Outpatient (BNVA) | payer BC, SELFPAY | PROVIDERS: PCP Clinical Nurse Specialist Adult Health; Visit Provider Emergency Medicine | DX: B34.9 Viral infection, unspecified (principal) | CPT/HCPCS: 87400; 87426 ==

== ENCOUNTER → 2024-05-07 08:48 | Outpatient (BNVA) | payer BC, SELFPAY | PROVIDERS: PCP Clinical Nurse Specialist Adult Health | DX: R05.9 Cough, unspecified (principal) | CPT/HCPCS: 87400 ==